=== PATIENT | female | born 1940 | race Caucasian/White ===

== ENCOUNTER 2017-12-28 13:15 | Emergency (ER) | payer MEDICARE ==
[~2017-12-28] VITALS: Ht 170.2 cm; Wt 61.0 kg
[2017-12-28] MEDS ORDERED: FERRCAP6 PO (13:40)
[2017-12-28] MEDS ORDERED: NIFE30TA61 PO (13:40)
[2017-12-28] MEDS ORDERED: ATOR20TA15 PO (13:40)
[2017-12-28] MEDS ORDERED: POTA-163 PO (13:40)
[2017-12-28] MEDS ORDERED: SUCR1TAB PO (13:40)
[2017-12-28] MEDS ORDERED: OMEP40CA2 (13:40)
[2017-12-28] MEDS ORDERED: ASPI-516 CHEW (13:40)
[2017-12-28 13:45] VITALS: BP_SYST 125; BP_SYST 131; BP_SYST 132; BP_DIAS 60; BP_DIAS 71; PULSE 77; RESP 15; RESP 16; TEMP 97.8; O2SAT 96
--- NOTE | 2017-12-28 14:07 | PD ---
HPI Chief Complaint: Abnormal Results Time Seen by Provider: 13:27 Travel History International Travel<30 days: No Contact w/Intl Traveler<30days: No Traveled to known affect area: No History of Present Illness HPI 77 yo female here for evaluation of low hemoglobin. Per patient she follows with her doctor and has had blood test that showed low hemoglobin every time. Per patient his been ongoing since September. Per patient it's been progressively getting worse and worse. Denies any urinary symptoms that she has some dark stools. Per patient she was started on medications for peptic ulcer disease. She was, her doctor because her hemoglobin today was 7.8. Per patient last time was 8.1. She denies any urinary issues. She denies any chest pain or shortness of breath. Has no allergies to medication. No fevers chills or sweats. No abdominal pain. Per patient she's been feeling dizzy and weak the dizziness has been ongoing for over a year. Has no allergies to medication. Per patient [place] comes here [place] winter. She denies any blood in her stool. Denies any pain of any kind. No chest pain or shortness of breath. PFSH Past Medical History Hx Anticoagulant Therapy: Yes (81MG ASA) Anemia: Yes Arthritis: Yes High Cholesterol: Yes Hypertension: Yes Influenza Vaccination: Yes Past Surgical History Cholecystectomy: Yes Eye Surgery: Yes (cataract bilat) Social History Alcohol Use: No Tobacco Use: Yes (ppd) Substance Use: No Allergies-Medications (Allergen,Severity, Reaction): Coded Allergies: No Known Allergies (Unverified , 12/28/17) Reported Meds & Prescriptions Reported Meds & Active Scripts Active Reported Potassium Chloride ER (Potassium Chloride) 20 Meq Tab 20 Meq PO DAILY Sucralfate 1 Gram Tab 1 Gm PO QID on empty stomach Aspirin 81 Mg Chew 81 Mg CHEW DAILY Omeprazole 40 Mg Cap 40 Mg DAILY Nifedipine ER 24 HR (Nifedipine) 30 Mg Tab 30 Mg PO DAILY Atorvastatin (Atorvastatin Calcium) 20 Mg Tab 20 Mg PO HS Integra F 125-1 mg (Ferrous Fumarate-Iron Polysacc) 125 Mg-1 Mg-40 Mg-3 Mg Cap 1 Cap PO BID Review of Systems Except as stated in HPI: all other systems reviewed are Neg Physical Exam Narrative GENERAL: SKIN: Warm and dry. HEAD: Atraumatic. Normocephalic. EYES: Pupils equal and round. No scleral icterus. No injection or drainage. ENT: No nasal bleeding or discharge. Mucous membranes pink and moist. Tongue is midline. No uvula deviation. NECK: Trachea midline. No JVD. CARDIOVASCULAR: Regular rate and rhythm. No murmurs, S3, S4. RESPIRATORY: No accessory muscle use. Clear to auscultation. Breath sounds equal bilaterally. GASTROINTESTINAL: Abdomen soft, non-tender, nondistended. Hepatic and splenic margins not palpable. MUSCULOSKELETAL: Extremities without clubbing, cyanosis, or edema. No obvious deformities. Full range of motion of the upper and lower extremities bilaterally. 2+ pulses bilaterally. NEUROLOGICAL: Awake and alert. No obvious cranial nerve deficits. Motor grossly within normal limits. Five out of 5 muscle strength in the arms and legs. Normal speech. PSYCHIATRIC: Appropriate mood and affect; insight and judgment normal. Data Data Last Documented VS Vital Signs Date Time Temp Pulse Resp B/P (MAP) Pulse Ox O2 Delivery O2 Flow Rate FiO2 12/28/17 14:43 97.8 76 15 132/77 (95) 98 Room Air Orders Orders Complete Blood Count With Diff (12/28/17 13:44) Comprehensive Metabolic Panel (12/28/17 13:44) Ckmb (Isoenzyme) Profile (12/28/17 13:44) Troponin I (12/28/17 13:44) Prothrombin Time / Inr (Pt) (12/28/17 13:44) Act Partial Throm Time (Ptt) (12/28/17 13:44) Lipase (12/28/17 13:44) Urinalysis - C+S If Indicated (12/28/17 13:44) Magnesium (Mg) (12/28/17 13:44) Thyroid Stimulating Hormone (12/28/17 13:44) Chest, Single Ap (12/28/17 13:44) Iv Access Insert/Monitor (12/28/17 13:44) Ecg Monitoring (12/28/17 13:44) Oximetry (12/28/17 13:44) Orthostatic Vital Signs (12/28/17 13:44) Type And Screen (12/28/17 13:44) Electrocardiogram (12/28/17 ) Ed Discharge Order (12/28/17 16:14) Labs Laboratory Tests Test 12/28/17 13:55 12/28/17 14:40 White Blood Count 7.3 TH/MM3 Red Blood Count 3.63 MIL/MM3 Hemoglobin 8.6 GM/DL Hematocrit 27.4 % Mean Corpuscular Volume 75.6 FL Mean Corpuscular Hemoglobin 23.7 PG Mean Corpuscular Hemoglobin Concent 31.3 % Red Cell Distribution Width 18.1 % Platelet Count 414 TH/MM3 Mean Platelet Volume 6.5 FL Neutrophils (%) (Auto) 51.5 % Lymphocytes (%) (Auto) 39.9 % Monocytes (%) (Auto) 7.7 % Eosinophils (%) (Auto) 0.8 % Basophils (%) (Auto) 0.1 % Neutrophils # (Auto) 3.8 TH/MM3 Lymphocytes # (Auto) 2.9 TH/MM3 Monocytes # (Auto) 0.6 TH/MM3 Eosinophils # (Auto) 0.1 TH/MM3 Basophils # (Auto) 0.0 TH/MM3 CBC Comment DIFF FINAL Differential Comment Prothrombin Time 10.7 SEC Prothromb Time International Ratio 1.1 RATIO Activated Partial Thromboplast Time 23.4 SEC Blood Urea Nitrogen 19 MG/DL Creatinine 0.88 MG/DL Random Glucose 90 MG/DL Total Protein 7.1 GM/DL Albumin 3.6 GM/DL Calcium Level 9.1 MG/DL Magnesium Level 2.1 MG/DL Alkaline Phosphatase 75 U/L Aspartate Amino Transf (AST/SGOT) 11 U/L Alanine Aminotransferase (ALT/SGPT) 14 U/L Total Bilirubin 0.2 MG/DL Sodium Level 140 MEQ/L Potassium Level 3.6 MEQ/L Chloride Level 105 MEQ/L Carbon Dioxide Level 28.5 MEQ/L Anion Gap 7 MEQ/L Estimat Glomerular Filtration Rate 62 ML/MIN Total Creatine Kinase 73 U/L Troponin I LESS THAN 0.02 NG/ML Lipase 169 U/L Thyroid Stimulating Hormone 3rd Gen 1.920 uIU/ML Urine Color YELLOW Urine Turbidity CLEAR Urine pH 6.5 Urine Specific [place] 1.024 Urine Protein 30 mg/dL Urine Glucose (UA) NEG mg/dL Urine Ketones NEG mg/dL Urine Occult Blood NEG Urine Nitrite NEG Urine Bilirubin NEG Urine Urobilinogen 4.0 MG/DL Urine Leukocyte Esterase LARGE Urine WBC 4 /hpf Urine Squamous Epithelial Cells 3 /hpf Urine Transitional Epithelial Cells <1 /hpf Urine Hyaline Casts 6 /lpf Urine Mucus FEW /lpf Microscopic Urinalysis Comment CULT NOT INDICATED MDM Medical Decision Making Medical Screen Exam Complete: Yes Emergency Medical Condition: Yes Medical Record Reviewed: Yes Interpretation(s) Last Impressions Chest X-Ray 12/28/17 1344 Signed Impressions: Service Date/Time: Thursday, December 28, 2017 13:57 - CONCLUSION: 1. No acute cardiopulmonary findings identified. Mann Falcon MD CBC & BMP Diagram 12/28/17 13:55 Total Protein 7.1, Albumin 3.6, Calcium Level 9.1, Magnesium Level 2.1, Alkaline Phosphatase 75, Aspartate Amino Transf (AST/SGOT) 11 L, Alanine Aminotransferase (ALT/SGPT) 14, Total Bilirubin 0.2 coags WNL troponin and CKMB negative Differential Diagnosis Anemia versus GI bleed versus peptic ulcer disease versus iron deficiency anemia versus kidney failure versus bleeding Narrative Course 77-year-old female that presents to the ED for evaluation of anemia. Patient was properly examined and was found to have signs and symptoms consistent what appears to be symptomatic anemia. Unclear etiology. I did a Hemoccult test on her and it was negative. Labs ordered. Labs and imaging were essentially unremarkable. Patient does have anemia but not as severe as previously stated. Patient was concerned that maybe that was abnormality from the blood work as she's never had a drop in blood before. She understands she does need an EGD. I gave patient the option for admission versus going home as she doesn't really have much symptoms here at this time. She looks well. She is already taking medications for her possible ulcer. This was discussed with my attending Dr Umanzor who agrees with options. Patient prefers to go home. Patient states that Dr. Burroughs has already made an appointment for her to have an endoscopy. At this time I think this is reasonable. Patient understands reasons to come back. Follow with PCP. See ED worsening symptoms. [facility] Point of Care Internal Pos. & Neg. Controls: Passed Fecal Specimen Occult Blood: Negative Diagnosis Primary Impression: Anemia Qualified Codes: D50.9 - Iron deficiency anemia, unspecified Patient Instructions: General Instructions Additional Instructions: Taking medications as prescribed. See ED worsening symptoms. Follow with PCP. Med/Other Pt SpecificInfo: Prescription(s) given Disposition: DISCHARGE HOME Condition: Stable Frankie Oneil Dec 28, 2017 14:07
[2017-12-28 14:10] LABS: AUTOMATED NEUTROPHIL # 3.8 TH/MM3 (1.8-7.7); BASOPHIL % 0.1 % (0.0-2.0); EOSINOPHIL # 0.1 TH/MM3 (0-0.4); EOSINOPHIL % 0.8 % (0.0-4.0); HEMATOCRIT 27.4 % (35.0-46.0); HEMOGLOBIN 8.6 GM/DL (11.6-15.3); LYMPH % 39.9 % (9.0-44.0); LYMPHOCYTE # 2.9 TH/MM3 (1.0-4.8); MEAN CELL VOLUME 75.6 FL (80.0-100.0); MEAN CORPUSCULAR HEMOGLOBIN 23.7 PG (27.0-34.0); MEAN CORPUSCULAR HGB CONC 31.3 % (32.0-36.0); MEAN PLATELET VOLUME 6.5 FL (7.0-11.0); MONO % 7.7 % (0.0-8.0); MONOCYTE # 0.6 TH/MM3 (0-0.9); NEUT % 51.5 % (16.0-70.0); PLATELET COUNT 414 TH/MM3 (150-450); RED BLOOD COUNT 3.63 MIL/MM3 (4.00-5.30); RED CELL DISTRIBUTION WIDTH 18.1 % (11.6-17.2); WHITE BLOOD COUNT 7.3 TH/MM3 (4.0-11.0)
[2017-12-28 14:19] LABS: INTERNATIONAL NORMALIZED RATIO 1.1 RATIO; PROTHROMBIN TIME - PATIENT 10.7 SEC (9.8-11.6)
[2017-12-28 14:21] LABS: ALBUMIN 3.6 GM/DL (3.4-5.0); AST (GOT) 11 U/L (15-37); BICARBONATE 28.5 MEQ/L (21.0-32.0); BLOOD UREA NITROGEN 19 MG/DL (7-18); CALCIUM 9.1 MG/DL (8.5-10.1); CHLORIDE 105 MEQ/L (98-107); CREATININE 0.88 MG/DL (0.50-1.00); GLOMERULAR FILTRATION RATE 62 ML/MIN (>89); GLUCOSE,RANDOM 90 MG/DL (74-106); MAGNESIUM 2.1 MG/DL (1.5-2.5); SODIUM (NA) 140 MEQ/L (136-145)
[2017-12-28 14:22] LABS: ALT (GPT) 14 U/L (10-53)
--- NOTE | 2017-12-28 14:29 | RADRPT ---
EXAM DATE/TIME: 12/28/2017 13:57 [facility] COMPARISON: No previous studies available for comparison. INDICATIONS : Syncope MEDICAL HISTORY : None. SURGICAL HISTORY : None. ENCOUNTER: Initial ACUITY: 1 day PAIN SCORE: 5/10 LOCATION: Bilateral chest FINDINGS: A single view of the chest demonstrates the lungs to be symmetrically aerated without evidence of mas s, infiltrate or effusion. The cardiomediastinal contours are unremarkable. Osseous structures are intact. CONCLUSION: 1. No acute cardiopulmonary findings identified. Mann Falcon MD on December 28, 2017 at 14:25 Board Certified Radiologist. This report was verified electronically.
[2017-12-28 14:32] LABS: ALKALINE PHOSPHATASE 75 U/L (45-117); TOTAL BILIRUBIN ADULT 0.2 MG/DL (0.2-1.0); TOTAL PROTEIN 7.1 GM/DL (6.4-8.2); TROPONIN I LESS THAN 0.02 NG/ML (0.02-0.05)
[2017-12-28 14:43] VITALS: BP 132/77; PULSE 76; RESP 15; TEMP 97.8; O2SAT 98
[2017-12-28 15:14] LABS: BLOOD, URINE NEG (NEG); GLUCOSE,URINE NEG (NEG); HYALINE CAST, URINE 6 /lpf (RARE); KETONE, URINE NEG (NEG); MUCUS URINE FEW /lpf (OCC); NITRITE,URINE NEG (NEG); PH, URINE 6.5 (5.0-8.5); SQUAMOUS EPITHELIAL CELL URINE 3 /hpf (0-5); TRANSITIONAL EPI CELLS, URINE <1 /hpf; URINE COLOR YELLOW (YELLW/STRAW); URINE LEUKOCYTE ESTERASE LARGE (NEG)
[2017-12-28 15:33] LABS: BILIRUBIN, URINE NEG (NEG)
[2017-12-28 16:35] VITALS: BP 124/81; TEMP 97.8
--- NOTE | 2017-12-29 14:12 | EKG ---
Date Performed: 12/28/2017 Time Performed: 14:24:55 PTAGE: 77 years EKG: Sinus rhythm CONSIDER ANTEROSEPTAL MYOCARDIAL INFARCTION, AGE UNDETERMINATE ABNORMAL ECG NO PREVIOUS TRACING DOCTOR: Jerome Rosen Interpretating Date/Time 12/29/2017 14:11:45
== END 2017-12-28 16:35 | disposition home or self-care (01) ==
LOC: NEPC 13:15
DX: D50.9 Iron deficiency anemia, unspecified (principal); R42 Dizziness and giddiness; R53.1 Weakness; R94.31 Abnormal electrocardiogram [ECG] [EKG]; K27.9 Peptic ulcer, site unspecified, unspecified as acute or chronic, without hemorrhage or perforation; I10 Essential (primary) hypertension; E78.00 Pure hypercholesterolemia, unspecified; Z72.0 Tobacco use; Z79.82 Long term (current) use of aspirin; Z87.39 Personal history of other diseases of the musculoskeletal system and connective tissue
CPT/HCPCS: 71045; 80053; 81001; 82550; 83690; 83735; 84443; 84484; 85025; 85610; 85730; 86850; 86900; 86901; 93005; 99285